=== PATIENT | female | born 1950 | race Caucasian/White ===

== ENCOUNTER 2022-03-08 06:28 | Observation (INO) | payer MEDICARE ==
[~2022-03-08] VITALS: Ht 162.6 cm; Wt 74.8 kg
[2022-03-08] MEDS ORDERED: TOPIRAMATE100 MG PO (06:44)
[2022-03-08] MEDS ORDERED: ALLEGRA ALLERGY60 MG PO (06:44)
[2022-03-08] MEDS ORDERED: LEVOTHYROXINE75 MCG PO (06:44)
[2022-03-08] MEDS ORDERED: ATORVASTATIN CA10 MG PO (06:44)
[2022-03-08] MEDS ORDERED: NEURONTIN100 MG PO (06:44)
[2022-03-08] MEDS ORDERED: CYMBALTA20 MG PO (06:44)
[2022-03-08] MEDS ORDERED: NEXIUM40 MG PO (06:44)
[2022-03-08] MEDS ORDERED: LASIX20 MG PO (06:44)
[2022-03-08] MEDS ORDERED: SODIUM CHLORIDE 0.9% 500ML 500 ML IV ONE (07:00)
[2022-03-08] MEDS ORDERED: ASPIRIN 81 MG CHEW TAB PO STA (07:27)
[2022-03-08 07:28] LABS: BASOPHILS % 0.1 % (0.0-1.0); EOSINOPHILS # (AUTO) 0.1 (0.0-0.4); HEMATOCRIT 39.3 % (34.2-44.1); HEMOGLOBIN 12.8 g/dL (12.0-16.0); LYMPHOCYTES # (AUTO) 1.4 (1.0-3.2); MEAN CORPUSCULAR HEMOGLOBIN 31.7 pg (28-32); MEAN CORPUSCULAR HGB CONC 32.6 g/dL (31-35); MEAN CORPUSCULAR VOLUME 97.3 fL (81-99); MONOCYTES # (AUTO) 0.7 (0.2-0.8); NEUTROPHILS # (AUTO) 7.1 (2.1-6.9); NEUTROPHILS % 76.6 % (38.7-80.0); PLATELET COUNT 262 x10e3/uL (140-360); RED BLOOD COUNT 4.04 x10e6/uL (3.6-5.1); RED CELL DISTRIBUTION WIDTH 13.2 % (11.7-14.4)
[2022-03-08 07:37] LABS: INR 0.81
[2022-03-08 07:38] LABS: PARTIAL THROMBOPLASTIN TIME 23.9 seconds (23.8-35.5)
[2022-03-08 07:41] LABS: CLARITY,URINE TURBID (CLEAR); COLOR,URINE YELLOW (YELLOW)
[2022-03-08 07:42] LABS: BACTERIA,URINE MANY /HPF; EPITHELIAL CELLS,URINE FEW /LPF; KETONES,URINE TRACE (NEGATIVE); LEUKOCYTE ESTERASE ,URINE SMALL (NEGATIVE); NITRITE,URINE POSITIVE (NEGATIVE); PROTEIN,URINE DIPSTICK 2+ (NEGATIVE); RBC,URINE 0-5 /HPF (0-5); URINE UROBILINOGEN 0.2 mg/dL (0.2 - 1); WBC,URINE (MAN) >50 /HPF (0-5)
[2022-03-08 07:46] LABS: ALANINE AMINOTRANSFERASE 26 IU/L (0-55); ALBUMIN 3.3 g/dL (3.5-5.0); ALKALINE PHOSPHATASE 69 IU/L (40-150); ANION GAP 9.1 mmol/L (8-16); BLOOD UREA NITROGEN 16 mg/dL (7-26); BUN/CREATININE RATIO 20 (6-25); CALCIUM 8.3 mg/dL (8.4-10.2); CARBON DIOXIDE 26 mmol/L (22-29); CHLORIDE 110 mmol/L (98-107); CREATINE KINASE 54 IU/L (29-168); CREATININE, SERUM 0.79 mg/dL (0.57-1.11); EST GLOMERULAR FILTRATION RATE 72 ML/MIN (60-); GLUCOSE 104 mg/dL (74-118); MAGNESIUM 1.9 MG/DL (1.3-2.1); POTASSIUM 3.1 mmol/L (3.5-5.1); SODIUM 142 mmol/L (136-145)
[2022-03-08] MEDS ORDERED: ASPIRIN 81 MG CHEW TAB ONE (07:47)
[2022-03-08] MEDS ORDERED: POTASSIUM CHLORIDE 20 MEQ TAB CR PO STA (07:51)
[2022-03-08 08:05] LABS: THYROID STIMULATING HORMONE 1.317 uIU/mL (0.350-4.940)
[2022-03-08] MEDS ORDERED: ONDANSETRON HCL INJ 2MG/ML 2ML 2 MG/ML VIAL IV PRN ×3 (08:15→13:00)
[2022-03-08] MEDS ORDERED: NITROGLYCERIN 0.4 MG SUBL SL PRN (08:15)
[2022-03-08] MEDS: FAMOTIDINE 20 MG/2 ML VIAL IV SCH ×2 (08:42→20:46)
[2022-03-08] MEDS: ASPIRIN 81 MG ENTERIC COATED PO SCH (09:00)
[2022-03-08 09:39] LABS: CHOL/HDL RATIO 3.9 (3.0-3.6)
[2022-03-08] MEDS ORDERED: SYMBICORT 16010.2 GM INH (10:39)
[2022-03-08 10:45] VITALS: BP 103/75
[2022-03-08 12:00] VITALS: BP 103/75
[2022-03-08] MEDS: SODIUM CHLORIDE 0.9% 1000ML 1,000 ML IV SCH (13:33)
[2022-03-08 14:05] LABS: CREATINE KINASE 48 IU/L (29-168)
[2022-03-08] MEDS ORDERED: IOPAMIDOL 370 MG/ML 100 ML INFUS..BTL INJ ONE (17:01)
[2022-03-08] MEDS ORDERED: LOPERAMIDE HCL 2 MG CAP PO PRN (18:30)
[2022-03-08 18:39] VITALS: BP 121/67
[2022-03-08 20:00] VITALS: BP 121/67
[2022-03-08 20:03] LABS: CREATINE KINASE 45 IU/L (29-168)
[2022-03-08] MEDS: TOPIRAMATE 100 MG TAB PO SCH (20:46)
[2022-03-08] MEDS ORDERED: METRONIDAZOLE 250MG/NS 50ML 50 ML IV SCH (22:00)
[2022-03-09] VITALS: BP 130/75
[2022-03-09] MEDS: METRONIDAZOLE 500MG/NS 100ML 100 ML IV SCH ×3 (01:30→17:21)
[2022-03-09 04:00] VITALS: BP 110/73
[2022-03-09] MEDS: SODIUM CHLORIDE 0.9% 1000ML 1,000 ML IV SCH ×2 (04:29→08:00)
[2022-03-09 05:39] LABS: BASOPHILS % 0.2 % (0.0-1.0); EOSINOPHILS # (AUTO) 0.1 (0.0-0.4); EOSINOPHILS % 2.3 % (0.0-6.0); HEMATOCRIT 36.5 % (34.2-44.1); LYMPHOCYTES # (AUTO) 3.1 (1.0-3.2); LYMPHOCYTES % 51.1 % (18.0-39.1); MEAN CORPUSCULAR HGB CONC 32.9 g/dL (31-35); MEAN CORPUSCULAR VOLUME 97.3 fL (81-99); MONOCYTES # (AUTO) 0.5 (0.2-0.8); MONOCYTES % 8.4 % (4.4-11.3); NEUTROPHILS # (AUTO) 2.3 (2.1-6.9); NEUTROPHILS % 37.7 % (38.7-80.0); PLATELET COUNT 238 x10e3/uL (140-360); RED BLOOD COUNT 3.75 x10e6/uL (3.6-5.1); RED CELL DISTRIBUTION WIDTH 13.2 % (11.7-14.4)
[2022-03-09 06:01] LABS: ANION GAP 10.6 mmol/L (8-16); CALCIUM 7.8 mg/dL (8.4-10.2); CHOL/HDL RATIO 3.6 (3.0-3.6); CREATININE, SERUM 0.67 mg/dL (0.57-1.11); POTASSIUM 3.6 mmol/L (3.5-5.1)
[2022-03-09 06:26] LABS: CREATINE KINASE 43 IU/L (29-168)
[2022-03-09] MEDS: LEVOTHYROXINE SODIUM 75 MCG TAB PO SCH (07:04)
[2022-03-09] MEDS: DULOXETINE HCL 20 MG DELAYED RELEASE PO SCH (08:34)
[2022-03-09] MEDS: FAMOTIDINE 20 MG/2 ML VIAL IV SCH ×2 (08:34→21:23)
[2022-03-09] MEDS: ASPIRIN 81 MG ENTERIC COATED PO SCH (08:34)
[2022-03-09] MEDS: GABAPENTIN 300 MG CAP PO SCH ×2 (08:35→17:16)
[2022-03-09 08:37] VITALS: BP 110/73
[2022-03-09] MEDS ORDERED: ONDANSETRON HCL 4 MG ORAL DISINTEGRATING TAB PO PRN (16:00)
[2022-03-09 20:00] VITALS: BP 130/82
[2022-03-09 21:00] VITALS: BP 109/66
[2022-03-09] MEDS ORDERED: ATORVASTATIN 10 MG TAB PO SCH (21:00)
[2022-03-09] MEDS: TOPIRAMATE 100 MG TAB PO SCH (21:23)
[2022-03-10] VITALS: BP 109/66
[2022-03-10] MEDS: SODIUM CHLORIDE 0.9% 1000ML 1,000 ML IV SCH
[2022-03-10] MEDS: METRONIDAZOLE 500MG/NS 100ML 100 ML IV SCH ×2 (00:43→08:00)
[2022-03-10 04:00] VITALS: BP 116/70
[2022-03-10 05:31] LABS: BASOPHILS % 0.1 % (0.0-1.0); EOSINOPHILS # (AUTO) 0.2 (0.0-0.4); EOSINOPHILS % 2.8 % (0.0-6.0); HEMATOCRIT 35.5 % (34.2-44.1); HEMOGLOBIN 11.7 g/dL (12.0-16.0); LYMPHOCYTES # (AUTO) 3.7 (1.0-3.2); LYMPHOCYTES % 55.3 % (18.0-39.1); MEAN CORPUSCULAR HEMOGLOBIN 31.6 pg (28-32); MEAN CORPUSCULAR VOLUME 95.9 fL (81-99); MONOCYTES # (AUTO) 0.6 (0.2-0.8); MONOCYTES % 8.2 % (4.4-11.3); NEUTROPHILS # (AUTO) 2.2 (2.1-6.9); NEUTROPHILS % 33.3 % (38.7-80.0); PLATELET COUNT 245 x10e3/uL (140-360); RED CELL DISTRIBUTION WIDTH 13.1 % (11.7-14.4)
[2022-03-10] MEDS: LEVOTHYROXINE SODIUM 75 MCG TAB PO SCH (06:12)
[2022-03-10] MEDS ORDERED: AUGMENTIN 500-1 EACH PO (07:10)
[2022-03-10 07:55] VITALS: BP 139/77
[2022-03-10] MEDS: FAMOTIDINE 20 MG/2 ML VIAL IV SCH (08:30)
[2022-03-10] MEDS: ASPIRIN 81 MG ENTERIC COATED PO SCH (08:30)
[2022-03-10] MEDS: DULOXETINE HCL 20 MG DELAYED RELEASE PO SCH (08:31)
[2022-03-10] MEDS: GABAPENTIN 300 MG CAP PO SCH (08:31)
[2022-03-10] MEDS ORDERED: METRONIDAZOLE 500 MG TAB PO SCH (16:00)
== END 2022-03-10 10:06 | disposition home or self-care (01) ==
LOC: ER 07:37 → INTOOBSV 08:05 → ERHOLD 08:05 → MED/SURG 10:25
PROVIDERS: ADMIT Internal Medicine; ATTEND Internal Medicine
DX: K52.9 Noninfective gastroenteritis and colitis, unspecified (principal); G43.109 Migraine with aura, not intractable, without status migrainosus; N39.0 Urinary tract infection, site not specified; E87.6 Hypokalemia; Z20.822 Contact with and (suspected) exposure to COVID-19; I25.10 Atherosclerotic heart disease of native coronary artery without angina pectoris; E87.8 Other disorders of electrolyte and fluid balance, not elsewhere classified; E86.0 Dehydration; E78.5 Hyperlipidemia, unspecified
CPT/HCPCS: 36415 ×3; 70450; 71045; 74177; 80053 ×2; 80061 ×2; 81001; 82550 ×2; 82553 ×2; 83735; 83880; 84443; 84484 ×2; 85025 ×3; 85610; 85730; 87086; 87186; 93005; 93306; 93880; 94799 ×2; 99285; G0378 ×3; J0696 ×2; J7030 ×2; J7040; Q9967; U0002